=== PATIENT | male | born 1950 ===

== ENCOUNTER 2019-03-31 06:16 | Inpatient (IN) | payer MEDICARE, BC ==
[~2019-03-31] VITALS: Ht 188 cm; Wt 112.0 kg
[2019-03-31] VITALS (16 sets, daily range): BP systolic 87–151; BP diastolic 51–98
[~2019-03-31 06:16] MED LIST: CRESTOR10 M2 ORAL; EDARBYCLOR 40-1 EAC1 ORAL
[2019-03-31] MEDS ORDERED: Sodium Chloride 10ml vial INJ ONE (06:17)
[2019-03-31] MEDS ORDERED: Lidocaine 1% MPF 10mg/ml 5ml ONE (06:17)
[2019-03-31] MEDS ORDERED: Propofol 200mg/20ml IV ONE ×2 (06:17→08:26)
--- NOTE | 2019-03-31 06:22 | Anethesia Preoperative Eval ---
Anesthesia Pre-op PMH/ROS General Date of Evaluation: Mar 31, 2019 Time of Evaluation: 07:13 Anesthesiologist: Giovana ASA Score: ASA 3 Mallampati Score Class I : Soft palate, uvula, fauces, pillars visible Class II: Soft palate, uvula, fauces visible Class III: Soft palate, base of uvula visible Class IV: Only hard plate visible Mallampati Classification: Class II Surgeon: Cody Diagnosis: R Hip pain Surgical Procedure: R Total Hip Arthroplasty Anesthesia History: none Family History: no anesthesia problems Allergies: Coded Allergies: No Known Allergies (Unverified , 03/31/19) Medications: see eMAR Patient NPO?: Yes Past Medical History Cardiovascular: Reports: HTN, other - HL Pulmonary: Reports: BERNY Other: obesity - BMI 32 Anesthesia Pre-op Phys. Exam Physician Exam Last Vital Signs Date Time Temp Pulse Resp B/P (MAP) Pulse Ox O2 Delivery O2 Flow Rate FiO2 03/31/19 05:48 97.8 64 18 109/71 96 Room Air Constitutional: NAD Neurologic: CN 2-12 intact Cardiovascular: RRR Respiratory: CTA Gastrointestinal: S/NT/ND Airway Exam Mallampati Classification Vital Signs Date Time Temp Pulse Resp B/P (MAP) Pulse Ox O2 Delivery O2 Flow Rate FiO2 03/31/19 06:37 Room Air 03/31/19 06:50 97.0 64 20 151/98 (115) 96 Mallampati Score: Class II MO: limited ROM: limited Teeth: missing, intact Anesthesia Pre-op A/P Risk Assessment & Plan Assessment: ASA 3 Plan: Spinal , GA, SED Status Change Before Surgery: No Pre-Antibiotics Dru Grams Ancef IV Given Within 1 Hr of Incision: Yes Time Given: 07:31 Migue Akhtar MD Mar 31, 2019 06:22
[2019-03-31] MEDS ORDERED: cloNIDine 1000mcg/10ml inj ONE (06:23)
[2019-03-31] MEDS ORDERED: EPINEPHrine 1mg/1ml Amp ONE ×2 (06:23→07:07)
[2019-03-31] MEDS ORDERED: Bupivacaine 0.5% Inj 30 ml vial INJ ONE (06:23)
[2019-03-31] MEDS ORDERED: Dexamethasone 4mg/ml vial ONE (06:25)
[2019-03-31] MEDS ORDERED: Alfentanil 2ml Inj ONE (06:26)
--- NOTE | 2019-03-31 06:40 | Pre-Procedure Note/Attestation ---
Pre-Procedure Note/Attestation Complete Prior to Procedure Planned Procedure: right Procedure Narrative: Right hip arthroplasty Indications for Procedure Pre-Operative Diagnosis: Right hip arthritis Attestation I attest that I discussed the nature of the procedure; its benefits; risks and complications; and alternatives (and the risks and benefits of such alternatives ), prior to the procedure, with the patient (or the patient's legal lead customer service representative). I attest that, if there was a reasonable possibility of needing a blood transfusion, the patient (or the patient's legal lead customer service representative) was given the [facility] standardized written summary, pursuant to the [place] Blood Safety Act ([place] Health and Safety Code # 1645, as amended). I attest that I re-evaluated the patient just prior to the surgery and that there has been no change in the patient's H&P, except as documented below: Kirill Ross MD Mar 31, 2019 06:40
--- NOTE | 2019-03-31 06:55 | Immediate Post-Op Evaluation ---
Immediate Post-Op Evalulation Immediate Post-Op Evalulation Procedure: R Hip Total Arthroplasty Date of Evaluation: Mar 31, 2019 Time of Evaluation: 10:37 IV Fluids: 1700 LR Blood Products: 0 Estimated Blood Loss: 100 Urinary Output: 200 Blood Pressure Systolic: 117 Blood Pressure Diastolic: 61 Pulse Rate: 91 Respiratory Rate: 16 O2 Sat by Pulse Oximetry: 98 Temperature (Fahrenheit): 97 Pain Score (1-10): 1 Nausea: No Vomiting: No Complications 0 Patient Status: awake, reacts, patent, none Hydration Status: adequate Dru Grams Ancef IV Given Within 1 Hr of Incision: Yes Time Given: 07:31 Migue Akhtar MD Mar 31, 2019 06:55
[2019-03-31] MEDS ORDERED: Morphine Sulfate 2mg/ml Inj(IV/IM USE ONLY) IVP PRN (07:00)
[2019-03-31] MEDS ORDERED: Sterile Water Irrig 1000ml IRRIG ONE (07:00)
[2019-03-31] MEDS ORDERED: NS Irrig 2000ml IRRIG ONE (07:00)
[2019-03-31] MEDS ORDERED: HYDROmorphone 1mg/ml Carpuject SUBQ PRN (07:00)
[2019-03-31] MEDS ORDERED: Milk of Magnesia 30ml Ud ORAL PRN (07:00)
[2019-03-31] MEDS ORDERED: NS Irrig 1000ml ONE (07:00)
[2019-03-31] MEDS ORDERED: Metoclopramide 10mg/2ml Inj IVP ONE (07:00)
[2019-03-31] MEDS ORDERED: NORCO 10-325 T1 EACH ORAL (07:01)
[2019-03-31] MEDS ORDERED: LIPITOR10 MG ORAL (07:01)
[2019-03-31] MEDS ORDERED: Kenalog-40 1ml Vial ONE (07:07)
[2019-03-31] MEDS ORDERED: Duramorph PF 5mg/10ml amp ONE (07:08)
[2019-03-31] MEDS ORDERED: Bupivacaine w/Epi 0.5% 30ml Vial INJ ONE (07:08)
[2019-03-31] MEDS ORDERED: NeoSporin Gu Irrig 1ml Amp IRRIG ONE (07:08)
[2019-03-31] MEDS ORDERED: Bacitracin 50000 Units Vial ONE (07:08)
[2019-03-31] MEDS ORDERED: Depo-Medrol 40mg Inj ONE (07:08)
[2019-03-31] MEDS ORDERED: Tranexamic Acid 1,000 MG in NS 65 ML IV ONE (07:15)
[2019-03-31] MEDS ORDERED: NS Irrig 1000ml IRRIG ONE ×2 (07:39→10:27)
[2019-03-31] MEDS ORDERED: Duramorph PF 5mg/10ml amp IT ONE ×2 (07:39→10:26)
[2019-03-31] MEDS ORDERED: ePHEDrine 50mg/ml Inj ONE ×2 (07:48→07:52)
[2019-03-31] MEDS ORDERED: LR 1000ml 1,000 ML IVLG SCH (08:07)
[2019-03-31] MEDS ORDERED: Phenylephrine 10mg/ml Vial ONE (08:11)
[2019-03-31] MEDS ORDERED: LORazepam Inj 2mg/ml 1ml IV PRN (08:15)
[2019-03-31] MEDS ORDERED: oxyCODONE HCL/Acetaminophen 5/325mg ORAL PRN (08:15)
[2019-03-31] MEDS ORDERED: Hydromorphone 0.5mg/0.5ml inj IVP PRN (08:15)
[2019-03-31] MEDS ORDERED: HYDROcodone/Acetamin 5/325 tab ORAL PRN (08:15)
[2019-03-31] MEDS ORDERED: Labetalol 5mg/ml 20ml vial IV PRN (08:15)
[2019-03-31] MEDS ORDERED: DiphenhydrAMINE 50mg/ml Inj IVP PRN (08:15)
[2019-03-31] MEDS ORDERED: Atropine Sulfate 0.4mg/ml inj IVP PRN (08:15)
[2019-03-31] MEDS ORDERED: Meperidine 50mg/ml Inj(FOR RIGORS ONLY) IVP PRN (08:15)
[2019-03-31] MEDS ORDERED: fentaNYL 100 mcg/2 mL IV PRN (08:15)
[2019-03-31] MEDS ORDERED: Midazolam 2mg/2ml Inj IVP PRN (08:15)
[2019-03-31] MEDS ORDERED: HYDROcodone/Acetamin 7.5/325 tab ORAL PRN (08:15)
[2019-03-31] MEDS ORDERED: fentaNYL 100 mcg/2 mL ONE (08:44)
[2019-03-31] MEDS: oxyCONTIN 20mg tab ORAL SCH ×2 (09:00→20:35)
[2019-03-31] MEDS: Docusate 100mg cap ORAL SCH ×3 (09:00→17:34)
[2019-03-31] MEDS: celeBREX 200mg Cap **SURGERY PATIENTS ONLY ORAL SCH (09:00)
--- NOTE | 2019-03-31 10:39 | Brief Operative Note ---
Immediate Post Operative Note Operative Note Pre-op Diagnosis: Right hip arthritis Procedure: Right hip arthroplasty Post-op Diagnosis: same as pre-op Findings: consistent w/pre-op dx studies Surgeon: Cody Anesthesiologist: Giovana Anesthesia: general, regional, local Specimen: yes Complications: none Condition: stable Fluids: 150 ml Drains: none Implant(s) used?: Yes Kirill Ross MD Mar 31, 2019 10:39
--- NOTE | 2019-03-31 12:30 | NUR ---
NURSE NOTES: REC'D FROM PACU SP RT HIP ARTHROPLASTY.DROWSY BUT AROUSABLE . VS TAKEN. PAIN SCALE 3/10. RT HIP DRESSING DRY AND INTACT. WITH GOOD PEDAL PULSE. IN NO ACUTE DISTRESS.
[2019-03-31] MEDS: D5 1/2NS w/KCl 20mEq 1,000 ML IV SCH (13:24)
[2019-03-31] MEDS: ceFAZolin sod 2 GM in D5W 110 ML IV SCH ×2 (15:03→23:34)
--- NOTE | 2019-03-31 16:28 | Diagnostic Imaging Report ---
Indication: Intraoperative imaging, hip pain Technique: One view of the pelvis Comparison: none Findings: Intraoperative images demonstrate placement of a right hip hemiarthroplasty prosthesis. Retained air from the surgical exposure is seen within the soft tissues. Prosthesis appears well aligned. Guerra catheter is incidentally noted Impression: Intraoperative imaging, as described
--- NOTE | 2019-03-31 16:44 | Diagnostic Imaging Report ---
Indication: Postoperative, status post right hip arthroplasty Technique: One view of the pelvis Comparison: 3 hours earlier Findings: Right hip hemiarthroplasty prosthesis is again demonstrated. Retained air from surgical exposure seen in the soft tissues. Prosthesis appears well aligned. Guerra catheter, prior left hip arthroplasty prosthesis are also demonstrated Impression: Postoperative right hip. No unusual features
--- NOTE | 2019-03-31 19:05 | NUR ---
NURSE NOTES: resting. in no apparent distress.
--- NOTE | 2019-03-31 19:25 | NUR ---
NURSE NOTES: Report taken from EDU Carter. Patient is asleep and arousable by name, A&Ox4. No signs of distress on 2L NC. Minor complaints of pain through right LE, 3/10, full sensation present. IV site c/d/i and patent, running D51/2+20KCl at 75mls/hr. Surgical site c/d/i. Bed in lowest position, call light within reach.
--- NOTE | 2019-03-31 19:31 | NUR ---
HAND-OFF: Report given to ariel watson rn.
--- NOTE | 2019-03-31 19:45 | Operative Note - Dictated ---
DATE OF OPERATION: 03/31/2019 SURGEON: Kirill Ross M.D. INJECTION MACHINE OPERATOR: None. ANESTHESIA: General plus regional, plus local. COMPLICATIONS: None ANTIBIOTICS: Ancef. PREOPERATIVE DIAGNOSIS: Right hip arthritis. POSTOPERATIVE DIAGNOSIS: Right hip arthritis. PROCEDURE PERFORMED: Right total hip arthroplasty using an uncemented Biomet G7 acetabular 58 mm shell with a 46 mm dual mobility acetabular liner, and uncemented Profemur Z classic MicroPort femoral stem with long neck size #7 varus 8 degrees, 28/46 mm dual-mobility bearing and MicroPort Biolox Delta femoral long neck. BACKGROUND: The patient has had long-standing right hip pain refractory to nonoperative management. All risks, benefits, and alternatives to surgical intervention were discussed in great detail. Risks included, but were not limited to, bleeding, infection, neurovascular injury, need for additional surgical intervention, failure of pain relief, arthrofibrosis, complications of anesthesia, blood clots, stroke, heart attack, and potentially . He understood these risks, amongst others, including rotational deformity, fracture, and leg length discrepancy, and consent was signed. PROCEDURE IN DETAIL: The patient was brought into the operating room and placed into a lateral decubitus position with the right side towards the ceiling after general anesthesia and regional anesthesia were administered. Two grams of Ancef was administered. The right hip was correctly verified for surgical site and prepped and draped in standard sterile fashion. A posterior incision was created for percutaneously assisted total hip arthroplasty. Hemostasis was maintained using electrocautery. The fascia was incised along the longitudinal axis of the wound and blunt dissection was carried down to the conjoint tendon. The conjoint tendon was detached as distally as possible for future reattachment. The capsule was readily identified and opened in T like fashion. Fluid was cleared from the joint and the hip dislocated. There was severe arthritis on both sides of the joint. Femoral neck osteotomy was performed and attention turned to the femur. Using a box osteotome to gain a lateral starting point, sequential reaming and broaching revealed appropriate fit and fill with a size #7 approach. Attention was then turned to the acetabulum. Using appropriately placed retractors, the tissue was cleared from the acetabulum. A percutaneous trocar was secured into position and sequential reaming was undertaken to a size 57 mm. There was excellent bleeding bone circumferentially and a 58 mm G7 acetabular shell was secured into position. A dual-mobility acetabular liner was fitted. Trial reduction using a long neck with long head revealed excellent stability. There was no perching or dislocation at 90 degrees hip flexion, 90 degrees of flexion with 85 degrees internal rotation, position of sleep, position of sleep with 85 degrees internal rotation, full extension, and full extension with external rotation and posterior pressure on the buttock. Radiographs confirmed symmetric skeletal leg lengths and clinically leg lengths were equal as well. The real components were fitted into position and there was no change in final stability, skeletal leg lengths on x-ray, or clinical leg lengths. The surrounding tissues were copiously irrigated and finger sweep revealed no retained foreign body or debris. The surrounding tissues were then injected with 60 mL of 0.25% Marcaine with epinephrine mixed with Toradol and Decadron. The capsule was reapproximated using with #1 Vicryl and the conjoint tendon was approximated to the abductor tendon using 0 Vicryl. More superficial tissues were reapproximated using 0 and 2-0 Vicryl. Monocryl was used in subcuticular fashion. Steri-Strips were used over Mastisol. Dry sterile dressing was applied. He tolerated the procedure well. There were no complications. I attest I performed the entire operation. When he was placed supine, leg lengths were equal. Kirill Ross M.D. DR: PARAMJIT JOB#: [id number] CC: RUDDY
[2019-04-01] VITALS: BP 114/71
[2019-04-01] MEDS: D5 1/2NS w/KCl 20mEq 1,000 ML IV SCH (02:18)
[2019-04-01 04:00] VITALS: BP 116/74
--- NOTE | 2019-04-01 06:14 | Orthopedic Progress Note ---
Orthopedic - Progress Note Subjective Symptoms: c/o post-op hip pain Objective Last 24 Hour Vital Signs Date Time Temp Pulse Resp B/P (MAP) Pulse Ox O2 Delivery O2 Flow Rate FiO2 04/01/19 04:30 98.1 04/01/19 04:00 97.9 73 18 116/74 (88) 97 04/01/19 00:00 98.1 74 18 114/71 (85) 98 03/31/19 21:05 98.2 03/31/19 21:00 Room Air 03/31/19 20:00 98.7 83 20 120/76 (91) 98 03/31/19 16:00 98.2 81 22 105/63 (77) 98 03/31/19 14:10 97.4 95 21 102/64 (77) 94 03/31/19 13:10 97.3 83 20 97/61 (73) 94 03/31/19 12:40 96.9 87 21 87/51 (63) 93 03/31/19 12:30 Nasal Cannula 3.0 03/31/19 11:55 97.1 85 13 109/59 96 Nasal Cannula 3 03/31/19 11:40 97.1 84 13 104/56 97 Nasal Cannula 3 03/31/19 11:25 79 12 103/55 96 Nasal Cannula 3 03/31/19 11:10 85 15 99/54 96 Nasal Cannula 3 03/31/19 10:55 78 13 96/58 98 Nasal Cannula 3 03/31/19 10:45 76 13 105/58 98 Simple Mask 6 03/31/19 10:35 84 15 114/64 98 Simple Mask 6 03/31/19 10:30 85 14 108/66 98 Simple Mask 6 03/31/19 10:26 97.0 89 15 108/66 98 Simple Mask 6 03/31/19 10:23 91 16 98 03/31/19 06:50 97.0 64 20 151/98 (115) 96 03/31/19 06:37 Room Air Intake and Output 03/31/19 04/01/19 18:59 06:59 Intake Total 2872.5 ml 150 ml Output Total 850 ml Balance 2022.5 ml 150 ml Intake Oral 500 ml IV Total 2372.5 ml 150 ml Output Urine Total 750 ml Estimated Blood Loss 100 ml Wound: clean, dry Drains: none Neuro Status: normal Vascular Status: normal Additional Comments Leg length equal. Sciatic nerve function normal. Assessment Procedure Performed Right hip arthroplasty Plan Plan: PT, pain management, discharge to home Additional Comments Plan on Guerra out, PT training and discharge home if comfortable. Dr. Bañuelos was kind enough to consult. Mr. Smith will follow up in 7-10 days in my office. OK to shower tomorrow. Kirill Ross MD Apr 01, 2019 06:14
--- NOTE | 2019-04-01 07:21 | NUR ---
HAND-OFF: Report given to EDU Carter. Patient is awake and VS stable. Guerra removed at 0645. MD Ross stopped by and stated patient may go home if he feels comfortbale. Endorsed to RN.
--- NOTE | 2019-04-01 07:32 | NUR ---
NURSE NOTES: AWAKE/ALERT.PAIN SCALE 6/10.RT HIP DRESSING DRY AND INTACT WITH GOOD PEDAL PULSE. ICE PACK TO RT HIP. IN NO DISTRESS.
[2019-04-01 08:00] VITALS: BP 129/81
[2019-04-01] MEDS: celeBREX 200mg Cap **SURGERY PATIENTS ONLY ORAL SCH (09:14)
[2019-04-01] MEDS: oxyCONTIN 20mg tab ORAL SCH ×2 (09:14→20:58)
[2019-04-01] MEDS: Docusate 100mg cap ORAL SCH ×3 (09:15→17:43)
[2019-04-01] MEDS: Enoxaparin 40mg Inj SUBQ SCH (09:20)
--- NOTE | 2019-04-01 11:06 | 48 Hour Post Anesthesia Eval ---
Post Anesthesia Evaluation Procedure: R Hip Total Arthroplasty Date of Evaluation: Apr 01, 2019 Airway: patent Nausea: No Vomiting: No Pain Intensity: 0 If pain is > 6 Comment: patiet with complaint of sore throat, cloraseptic ordered Hydration Status: adequate Cardiopulmonary Status: aat bseline Mental Status/LOC: patient returned to baseline Post-Anesthesia Complications: 0 Follow-up care needed: N/A - further care as per primary tea Makayla Carey MD Apr 01, 2019 11:06
[2019-04-01] MEDS ORDERED: Chloraseptic Spray 20mL Bottle ORAL PRN (11:15)
--- NOTE | 2019-04-01 11:55 | NUR ---
CASE MANAGEMENT: 68 YR OLD MALE ELECTIVE SURGERY SI: RIGHT HIP ARTHROPLASTY 97.0 64 20 151/98 96%RA IS: TO SURGERY FOR RIGHT HIP ARTHROPLASTY : IN SURGERY CASE MANAGEMENT: REVIEW 04/01/19 SI: S/P ARTHROPLASTY 98.8 85 18 129/81 97% RA IS: LOVENOX SQ QD IVF DEXTROSE @75/HR OXYCONTIN PO Q12 CELEBREX PO QD DILAUDID SQ Q3/HR : 3E MED SURG DCP: RETURN HOME
[2019-04-01 12:00] VITALS: BP 136/82
[2019-04-01] MEDS: HYDROcodone/Acetamin 5/325 tab ORAL PRN (12:13)
--- NOTE | 2019-04-01 13:45 | NUR ---
DISCHARGE PLAN: PATIENT TO RETURN HOME ONCE MEDICALLY CLEAR. DISCUSSED DISCHARGE WITH PATIENT PATIENT STATES HE FEELS SAFE TO RETURN HOME WITH PARTNER
--- NOTE | 2019-04-01 14:50 | Consultation ---
Consult Note Assessment/Plan dict doing well post op dc plan home Arvin Bañuelos MD Apr 01, 2019 14:50
--- NOTE | 2019-04-01 15:30 | NUR ---
P.T NOTE: LATE ENTRY 929 P.T EVALUATION COMPLETED AND TREATMENT INITIATED PER [facility] [employer]. PLEASE REFER TO P.T EVALUATION FOR CURRENT FUNCTIONAL STATUS. PATIENT IS ALERT O X 4 , PLEASANT AND COOPERATIVE. PATIENT REPORTS C/O R HIP PAIN 8/10 WITH MOVEMENT INITIATION AND WB. PATIENT CURRENTLY REQUIRE MIN A X 1 FOR BED MOBILITY , CGA X 1 FOR TRANSFERS AND GAIT/AMBULATION ACTIVITIES USING THE FWW. ACTIVITY TOLERANCE IS LIMITED BY PAIN AND DIZZINESS FELT DURING GAIT TRAINING WHICH SUBSIDED OVER TIME AFTER ASSISTING PATIENT BACK TO BED. VITALS TAKEN AND WERE STABLE. PATIENT WILL BE SEEN 5X/WK X 1 BID OR UNTIL DC. RECOMMEND HOME P.T AT AL. DME: ALREADY HAS FWW AND BEDSIDE COMMODE AT HOME.
[2019-04-01 16:00] VITALS: BP 128/75
--- NOTE | 2019-04-01 17:30 | Consultation ---
DATE OF CONSULTATION: 04/01/2019 INTERNAL MEDICINE CONSULTATION CHIEF COMPLAINT: Right hip arthritis. HISTORY OF PRESENT ILLNESS: The patient is a very pleasant 68-year-old man, who came to the hospital yesterday for elective right hip replacement, which was performed uneventfully. Dr. Ross asked me to follow him for medicine. The patient states he is feeling pretty well and his pain is under control. PAST MEDICAL HISTORY: Hyperlipidemia and osteoarthritis. He denies any hypertension, diabetes, cancer, or other major health problems. MEDICATIONS: Lipitor and [place]. ALLERGIES: None. SOCIAL HISTORY: He does not drink, smoke, or use illicit drugs. 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 REVIEW OF SYSTEMS: Otherwise unremarkable. PHYSICAL EXAMINATION: GENERAL: The patient is alert and responds appropriately. He is overweight. VITAL SIGNS: Normal. SKIN: Warm and dry. HEENT: The head is normocephalic. NECK: No jugular venous distention. CHEST: Clear. CARDIAC: Rhythm is regular. ABDOMEN: Soft and nontender. EXTREMITIES: No clubbing, cyanosis, or edema. Surgical dressing over the right hip is noted. IMPRESSION: 1. Status post right hip arthroplasty for osteoarthritis. 2. Hyperlipidemia. PLAN: The patient is making satisfactory recovery and I anticipate discharge home tomorrow with home health physical therapy. Thank you for asking me to see him in consultation. Arvin Bañuelos M.D. DR: /YSoila JOB#: [id number] CC: Arvin Bañuelos M.D.; Fax#: [phone] JUANI ROSS M.D. ([facility] [place]) ; FAX#: [phone]
--- NOTE | 2019-04-01 19:00 | NUR ---
NURSE NOTES: IN STABLE CONDITION. NO ACUTE DISTRESS.
--- NOTE | 2019-04-01 19:07 | NUR ---
HAND-OFF: Report given to ANMOL Vanegas RN.
--- NOTE | 2019-04-01 19:45 | NUR ---
NURSE NOTES: Received report from EDU Carter and rounds made. Received pt laying in bed, AOx4, pain level 7/10. Will medicate for pain as needed. Right hip surgical dressing C/D/I, ice pack inplace, neuro check wnl. IV hand patent and intact. Bed in lowest position and locked, side rails up x 2, call light within reach. Will continue to monitor.
[2019-04-01 20:00] VITALS: BP 121/71
[2019-04-02] VITALS: BP 115/78
[2019-04-02 04:00] VITALS: BP 130/81
--- NOTE | 2019-04-02 07:23 | NUR ---
HAND-OFF: Report given to EDU Kurtz. Pt in stable condition.
--- NOTE | 2019-04-02 07:30 | NUR ---
NURSE NOTES: Patient lying in bed awake. Complain of pain 7/10 on surgical site and will administer pain medication as ordered. Surgical dressing intact and dry. Bed lowest position. Call light within reach. Will continue to monitor.
[2019-04-02 08:00] VITALS: BP 130/72
[2019-04-02] MEDS: HYDROcodone/Acetamin 5/325 tab ORAL PRN ×2 (08:05→16:07)
[2019-04-02] MEDS: Docusate 100mg cap ORAL SCH ×2 (09:35→14:04)
[2019-04-02] MEDS: oxyCONTIN 20mg tab ORAL SCH (09:35)
[2019-04-02] MEDS: celeBREX 200mg Cap **SURGERY PATIENTS ONLY ORAL SCH (09:36)
[2019-04-02] MEDS: Enoxaparin 40mg Inj SUBQ SCH (09:38)
--- NOTE | 2019-04-02 10:32 | NUR ---
NURSE NOTES: Spoke to regarding abduction pillow. Per : patient does not need abduction pillow. Order noted and carried out.
--- NOTE | 2019-04-02 11:15 | NUR ---
NURSE NOTES: Spoke to regarding discharge and new order received. Order read back and carried out.
[2019-04-02 12:00] VITALS: BP 131/78
--- NOTE | 2019-04-02 13:54 | NUR ---
DISCHARGE PLAN: DISCUSSED DISCHARGE WITH PATIENT AT BEDSIDE PATIENTS MD SET UP SERVICES; PATIENT RECIEVED CALL FROM SERVICES FOR AM Addendum: 04/02/19 at 1455 by YAZMIN BATISTA LVN TIFFANY WILL SEE PATIENT BETWEEN 3:30-4:30PM T:[phone]
--- NOTE | 2019-04-02 14:15 | NUR ---
NURSE NOTES: Spoke to regarding discharge and discharge home medications and new order received. Order read back and carried out.
[2019-04-02 16:00] VITALS: BP 124/66
--- NOTE | 2019-04-02 17:15 | NUR ---
NURSE NOTES: Patient discharged with family member in stable condition. Discharge instruction given to patient and verbalized understanding. Per patient : has pain medication and prescription at home. Belonging given to patient. Instructed to follow up with MD and home health. Home health information given. IV and ID removed.
--- NOTE | 2019-04-03 11:32 | Discharge Summary ---
Discharge Summary Hospital Course Date of Admission Mar 31, 2019 at 06:16 Date of Discharge Apr 02, 2019 at 17:15 Admitting Diagnosis right hip osteoarthritis Reason for Hospitalization: elective surgery HPI Tyler Smith is a 68 year old male who was admitted on Mar 31, 2019 at 06:16 for Right Hip Osteoarthritis Consultations Dr Bañuelos -IM/pulmo Procedures s/p 03/31/[address] Ross Right total hip arthroplasty using an uncemented Biomet G7 acetabular 58 mm shell with a 46 mm dual mobility acetabular liner, and uncemented Profemur Z classic MicroPort femoral stem with long neck size #7 varus 8 degrees, 28/46 mm dual-mobility bearing and MicroPort Biolox Delta femoral long neck. Hospital Course status post surgery course of recovery uneventful initially IV fluids s/p perioperative antibiotics neurovascular status closely monitored, remained stable incision clean, dry, and intact pain management addressed, pain controlled remained hemodynamically stable ambulated with PT fall precautions maintained; safe for ambulation DVT prophylaxis provided use of incentive spirometry was encouraged while in the bed tolerated diet , IV fluids discontinued GI prophylaxis provided antiemetics were on board as needed initially placed Guerra catheter discontinued ; voided freely bowel regimen instituted patient was stable for discharge discharge instructions provided follow up with surgeon in 7-10 days in clinic can shower in the morning FINAL DIAGNOSES 1. Right hip osteoarthritis 2. Status post right hip arthroplasty 3. Hyperlipidemia Discharge Medications Continued Medications: Atorvastatin Calcium* (Lipitor*) 10 Mg Tablet 10 MG ORAL DAILY, #30 TAB 0 Refills (This prescription has been renewed) Hydrocodone Bit/Acetaminophen 10-325* ([place] 10-325*) 1 Each Tablet 1 TAB ORAL Q4H PRN for For Pain, #10 TAB 0 Refills (This prescription has been renewed) PRN PAIN Discharge Condition Upon Discharge: stable Discharge Disposition Patient was discharged home with home health services Discharge Instructions Discharge Instructions Special Instructions I have been assigned to complete a D/C Summary on this account. I was not involved in the patient management Carie Chapman NP Apr 03, 2019 11:32
== END 2019-04-02 17:15 | disposition home health service (06) | DRG 470 ==
LOC: SDSOVERFLO 06:16 → 3E 12:28
PROC: 0SR90JA Replacement of Right Hip Joint with Synthetic Substitute, Uncemented, Open Approach (ICD-10-PCS; principal; 2019-03-31 07:30)
DX: M16.11 Unilateral primary osteoarthritis, right hip (principal); E78.5 Hyperlipidemia, unspecified
CPT/HCPCS: 36415; 72170; 86850; 86900; 86901; 87081; 94003; 94150; J2370; J2405; J3490